=== PATIENT | male | born 1985 | race Caucasian/White ===

== ENCOUNTER 2018-02-13 08:26 | Emergency (ER) | payer OTHER ==
[~2018-02-13] VITALS: Ht 180.3 cm; Wt 86.2 kg
[2018-02-13] MEDS ORDERED: MEDROLPACK PO (13:03)
[2018-02-13] MEDS ORDERED: EPIPEN 2-P0.3 MG/0.3 IM (13:03)
[2018-02-13] MEDS ORDERED: ZYRTEC10 MG PO ×2 (13:03→13:08)
== END 2018-02-13 13:27 | disposition home or self-care (01) ==
LOC: ER 08:26
DX: T78.3XXA Angioneurotic edema, initial encounter (principal)

== ENCOUNTER → 2018-03-15 | Emergency (ER) | payer OTHER ==
[~2018-03-15] VITALS: Ht 180.3 cm; Wt 83.9 kg
[~2018-03-15] MED LIST: EPIPEN 2-P0.3 MG/0.3 IM; MEDROLPACK PO; ZYRTEC10 MG PO
== END | disposition home or self-care (01) ==
LOC: ER 22:34
DX: H57.11 Ocular pain, right eye (principal)

== ENCOUNTER 2019-04-11 07:30 | Emergency (ER) | payer OTHER ==
[~2019-04-11] VITALS: Ht 177.8 cm; Wt 89.8 kg
== END 2019-04-11 11:14 | disposition home or self-care (01) ==
LOC: ER 07:30
DX: M62.838 Other muscle spasm (principal)

== ENCOUNTER 2019-08-13 01:25 | Emergency (ER) | payer OTHER ==
[~2019-08-13] VITALS: Ht 177.8 cm; Wt 91.2 kg
[2019-08-13] MEDS ORDERED: ORASEP SPRAY30 ML MM (04:42)
== END 2019-08-13 05:34 | disposition home or self-care (01) ==
LOC: ER 01:25
DX: K13.79 Other lesions of oral mucosa (principal)

== ENCOUNTER 2019-10-28 14:17 | Emergency (ER) | payer OTHER ==
[~2019-10-28] VITALS: Ht 177.8 cm; Wt 90.7 kg
[~2019-10-28 14:17] MED LIST changes: +ORASEP SPRAY30 ML MM
== END 2019-10-28 17:34 | disposition home or self-care (01) ==
LOC: ER 14:17
DX: J02.8 Acute pharyngitis due to other specified organisms (principal)